=== PATIENT | female | born 1985 | race Caucasian/White ===

== ENCOUNTER → 2020-01-04 | Outpatient (CLI) | payer OTHER ==
[2016-07-11 22:45] VITALS: BP 104/57
[~2020-01-04] MED LIST: METR500T PO
--- NOTE | 2020-01-04 17:25 | KCIC ---
Pelvic ultrasound HISTORY: Dysmenorrhea. Hirsutism. COMPARISON: 07/11/2016. FINDINGS: Transabdominal imaging is performed. Uterus measures 9.8 x 4.8 x 4.1 cm. Endometrial stripe is 1 cm in thickness with homogeneous echogenicity. No uterine lesion is seen. Right ovary measures 20.4 x 1.7 x 1.3 cm without focal lesion. Intact right ovary blood flow. Left ovary measures 2.9 x 3.4 x 1.9 cm without focal lesion. Intact left ovarian blood flow. No significant free pelvic fluid. IMPRESSION: Unremarkable pelvic ultrasound. Electronically signed by: Azael Bales MD (01/04/2020 5:23 PM) [facility]
== END | disposition home or self-care (01) ==
LOC: KCIC US 14:26
PROVIDERS: ATTEND Family Medicine
DX: N94.6 Dysmenorrhea, unspecified (principal); L68.0 Hirsutism
CPT/HCPCS: 76856